=== PATIENT | female | born 1985 | race African-American/Black ===

== ENCOUNTER 2018-04-27 17:02 | Emergency (ER) | payer MEDICAID, MEDICARE ==
[~2018-04-27] VITALS: Ht 172.7 cm; Wt 136.1 kg
[2018-04-27 17:06] VITALS: BP 173/117
== END 2018-04-27 18:49 | disposition left against medical advice (07) ==
LOC: ER 18:37
DX: R10.11 Right upper quadrant pain (principal); Z53.21 Procedure and treatment not carried out due to patient leaving prior to being seen by health care provider
CPT/HCPCS: 99281

== ENCOUNTER 2019-01-08 04:20 | Emergency (ER) | payer MEDICARE, MEDICAID ==
[~2019-01-08] VITALS: Ht 172.7 cm; Wt 140.4 kg
[2019-01-08] MEDS ORDERED: KETOROLAC 30MG/ML VIAL IM ONE (06:30)
[2019-01-08 07:50] VITALS: BP 160/79
== END 2019-01-08 07:55 | disposition home or self-care (01) ==
LOC: ER 04:20
DX: K08.89 Other specified disorders of teeth and supporting structures (principal); F17.200 Nicotine dependence, unspecified, uncomplicated
CPT/HCPCS: 96372; 99283; J1885

== ENCOUNTER 2021-07-12 16:13 | Inpatient (IN) | payer MEDICARE, MEDICAID ==
[~2021-07-12] VITALS: Ht 170.2 cm; Wt 140.2 kg
[~2021-07-12 16:13] MED LIST: DOCU250C14 PO; FERR325T23 PO; LEVO500T2 MT
[2021-07-12] MEDS ORDERED: SODIUM CHLORIDE 0.9% 1,000 ML IV ONE (21:15)
[2021-07-12] MEDS ORDERED: CEPHALEXIN 250MG CAPSULE PO ONE (21:15)
[2021-07-12 21:40] LABS: BG BASE EXCESS 0.4 mmol/L (-2.0-2.0); BG DEOXYHEMOGLOBIN 4.1 % (0.0-5.0); BG FRACTION INSPIRED OXYGEN 21; BG HCO3 ACT 24.3 mmol/L (22.0-26.0); BG METHEMOGLOBIN 0.4 % (0.0-1.5); BG OXYGEN SATURATION 95.8 % (92.0-98.5); BG OXYHEMOGLOBIN 94.5 % (94.0-97.0); BG PCO2 36.2 mmHg (35.0-45.0); BG PH 7.444 (7.350-7.450); BG PO2 79.8 mmHg (75.0-100.0); BG SAMPLE SITE LEFT BRACHIAL; BG VENT MODE ROOM AIR
[2021-07-12] MEDS ORDERED: INSULIN REGULAR (HUMULIN R) 300UNITS/3ML VIAL IV ONE (22:30)
[2021-07-12] MEDS ORDERED: ACETAMINOPHEN 325MG TABLET PO ONE (22:30)
[2021-07-12 23:21] LABS: BASOPHILS % 1.5 % (0.0-2.0); EOSINOPHILS % 2.4 % (0.0-5.0); HEMATOCRIT. 29.3 % (36.0-48.0); HEMOGLOBIN. 8.6 g/dL (12.0-16.0); MEAN CORPUSCULAR VOLUME 61.4 fL (81.0-99.0); MEAN PLATELET VOLUME 8.8 fl (7.4-10.4); NEUTROPHILS % 66.1 % (40.0-76.0); PLATELET 469 x1000/uL (130-400); RED BLOOD CELL COUNT 4.77 mill/uL (4.2-5.4)
[2021-07-12 23:29] LABS: CHLORIDE 100 mEq/L (98-107)
[2021-07-12 23:30] LABS: HCG SCREEN NEGATIVE
[2021-07-12 23:34] LABS: ETHANOL BLOOD < 10 mg/dL
[2021-07-12 23:36] LABS: BETA HYDROXYBUTYRATE 0.2 mMol/L (0.0-0.3)
[2021-07-13 00:08] LABS: PLATELET ESTIMATE NORMAL
[2021-07-13 02:45] VITALS: BP 141/75
[2021-07-13 03:46] VITALS: BP 141/75
[2021-07-13] MEDS ORDERED: DEXTROSE 50% WATER 50ML SYRINGE IV PRN (07:00)
[2021-07-13] MEDS: BLOOD SUGAR DIAGNOSTIC STRIP TEST SCH ×4 (07:20→21:10)
[2021-07-13] MEDS ORDERED: FERR325T23 PO (09:36)
[2021-07-13] MEDS ORDERED: DOCU250C14 PO (09:36)
[2021-07-13] MEDS ORDERED: INSU100I28 SQ (09:37)
[2021-07-13] MEDS ORDERED: INSULIN GLARGINE UD 100 UNITS/ML SYR SUBCUT SCH (10:00)
[2021-07-13 10:33] LABS: BASOPHILS % 1.4 % (0.0-2.0); EOSINOPHILS % 3.5 % (0.0-5.0); HEMATOCRIT. 28.7 % (36.0-48.0); HEMOGLOBIN. 8.8 g/dL (12.0-16.0); LYMPHOCYTES % 15.1 % (20.0-50.0); MEAN CORPUSCULAR HEMOGLOBIN 18.7 pg (28.0-32.0); MEAN CORPUSCULAR VOLUME 61.2 fL (81.0-99.0); MEAN PLATELET VOLUME 8.8 fl (7.4-10.4); MONOCYTES % 7.5 % (2.0-8.0); NEUTROPHILS % 72.5 % (40.0-76.0); PLATELET 481 x1000/uL (130-400); RED BLOOD CELL COUNT 4.69 mill/uL (4.2-5.4); RED CELL DISTRIBUTION WIDTH 21.7 % (11.6-14.6)
[2021-07-13 10:42] LABS: CHLORIDE 104 mEq/L (98-107)
[2021-07-13 10:51] LABS: LDL CHOLESTEROL 105 mg/dL (5-100)
[2021-07-13 10:54] LABS: HDL CHOLESTEROL 32 mg/dL (40-59)
[2021-07-13] MEDS: INSULIN GLARGINE UD 100 UNITS/ML SYR SUBCUT SCH ×2 (11:00→22:00)
[2021-07-13] MEDS: METFORMIN HCL 500MG TABLET PO SCH ×2 (11:48→17:13)
[2021-07-13] MEDS: LISINOPRIL 20MG TABLET PO SCH (11:49)
[2021-07-13] MEDS: INSULIN LISPRO 100 UNITS/ML SUBCUT SCH ×4 (12:19→21:00)
[2021-07-13] MEDS ORDERED: INSULIN LISPRO 100 UNITS/ML SUBCUT SCH (12:20)
[2021-07-13 20:00] VITALS: BP 134/74
[2021-07-13 21:58] VITALS: BP_SYST 142
[2021-07-14] VITALS: BP 102/53
[2021-07-14] MEDS: BLOOD SUGAR DIAGNOSTIC STRIP TEST SCH ×2 (07:04→13:19)
[2021-07-14] MEDS: METFORMIN HCL 500MG TABLET PO SCH (07:50)
[2021-07-14 08:00] VITALS: BP 106/64
[2021-07-14] MEDS: INSULIN LISPRO 100 UNITS/ML SUBCUT SCH ×4 (09:59→12:50)
[2021-07-14] MEDS: INSULIN GLARGINE UD 100 UNITS/ML SYR SUBCUT SCH (10:04)
[2021-07-14] MEDS: LISINOPRIL 20MG TABLET PO SCH (10:07)
[2021-07-14 12:00] VITALS: BP 147/69
[2021-07-14 12:53] VITALS: BP 147/69
== END 2021-07-14 13:30 | disposition home or self-care (01) | DRG 638 ==
LOC: ER 16:13 → 6EST 22:28 → ENRESERV 23:15
PROVIDERS: ADMIT Internal Medicine; ATTEND Internal Medicine
DX: E11.65 Type 2 diabetes mellitus with hyperglycemia (principal); E87.1 Hypo-osmolality and hyponatremia; E44.0 Moderate protein-calorie malnutrition; Z68.41 Body mass index [BMI] 40.0-44.9, adult; I10 Essential (primary) hypertension; D64.9 Anemia, unspecified; F17.210 Nicotine dependence, cigarettes, uncomplicated; E66.9 Obesity, unspecified; Z79.899 Other long term (current) drug therapy; Z71.6 Tobacco abuse counseling; Z71.3 Dietary counseling and surveillance
CPT/HCPCS: 36415; 36600; 80053; 80061; 80320; 82010; 82375; 82805; 82962; 83036; 83605; 84703; 85025; 99285; J1815; J7030; G0480

== ENCOUNTER 2022-04-07 08:02 | Emergency (ER) | payer BC, MEDICAID ==
[~2022-04-07] VITALS: Ht 177.8 cm; Wt 124.0 kg
[~2022-04-07 08:02] MED LIST changes: +INSU100I28 SQ; -LEVO500T2 MT
[2022-04-07] MEDS ORDERED: IBUPROFEN 600MG TABLET PO ONE (08:15)
[2022-04-07] MEDS ORDERED: HYDROCODONE/ACETAMINOPHEN 5/325MG TABLET PO ONE (08:15)
[2022-04-07] MEDS ORDERED: BACITRACIN ZINC OINT UDPKT TOP ONE (08:15)
[2022-04-07] MEDS ORDERED: LIDOCAINE HCL/PF 1% 10 MG/ML 5ML VIAL INFIL ONE (08:15)
[2022-04-07] MEDS ORDERED: IBUPROFEN 600MG TABLET PO NR (11:30)
[2022-04-07] MEDS ORDERED: HYDROCODONE/ACETAMINOPHEN 5/325MG TABLET PO NR (11:30)
[2022-04-07] MEDS ORDERED: LIDOCAINE HCL/PF 1% 10 MG/ML 5ML VIAL INFIL NR (11:30)
[2022-04-07] MEDS ORDERED: BACITRACIN ZINC OINT UDPKT TOP NR (11:30)
[2022-04-07] MEDS ORDERED: SULF1TAB48 MT (12:22)
[2022-04-07] MEDS ORDERED: CEPH500C2 MT (12:22)
[2022-04-07 12:58] VITALS: BP 127/86
== END 2022-04-07 12:59 | disposition home or self-care (01) ==
LOC: ER 08:28
DX: L02.214 Cutaneous abscess of groin (principal)
CPT/HCPCS: 10060; 99283; J3490

== ENCOUNTER 2022-04-27 10:16 | Emergency (ER) | payer BC, MEDICAID ==
[~2022-04-27] VITALS: Ht 172.7 cm; Wt 119.0 kg
[~2022-04-27 10:16] MED LIST changes: +CEPH500C2 MT; +SULF1TAB48 MT
[2022-04-27 10:19] VITALS: BP 131/86
[2022-04-27] MEDS ORDERED: CLOT15CR27 TP (15:55)
[2022-04-27] MEDS ORDERED: FLUC150T46 MT (15:55)
== END 2022-04-27 16:13 | disposition home or self-care (01) ==
LOC: ER 10:16
DX: B35.6 Tinea cruris (principal); E11.9 Type 2 diabetes mellitus without complications
CPT/HCPCS: 81025; 87210; 87491; 87591; 99283

== ENCOUNTER 2023-10-14 11:42 | Emergency (ER) | payer BC ==
[~2023-10-14] VITALS: Ht 167.6 cm; Wt 108.1 kg
[~2023-10-14 11:42] MED LIST changes: +CLOT15CR27 TP; +FLUC150T46 MT
[2023-10-14 11:56] VITALS: BP 121/80; PULSE 119; RESP 20; TEMP 98; O2SAT 100
[2023-10-14] MEDS ORDERED: IBUP-2029 MT (12:01)
[2023-10-14] MEDS ORDERED: CEPH500C2 MT (12:01)
== END 2023-10-14 12:06 | disposition home or self-care (01) ==
LOC: ER 11:42
DX: L02.31 Cutaneous abscess of buttock (principal); E11.9 Type 2 diabetes mellitus without complications; Z98.890 Other specified postprocedural states
CPT/HCPCS: 99283

== ENCOUNTER 2024-01-22 23:17 | Emergency (ER) | payer BC, MEDICAID ==
[~2024-01-22] VITALS: Ht 172.7 cm; Wt 101.3 kg
[~2024-01-22 23:17] MED LIST changes: +IBUP-2029 MT
[2024-01-22 23:34] VITALS: O2SAT 100
[2024-01-23 01:16] LABS: BASOPHILS % 1.3 % (0.0-2.0); EOSINOPHILS % 1.1 % (0.0-5.0); HEMATOCRIT. 32.1 % (36.0-48.0); LYMPHOCYTES % 16.8 % (20.0-50.0); MEAN CORPUSCULAR HEMOGLOBIN 21.1 pg (28.0-32.0); MEAN CORPUSCULAR VOLUME 68.1 fL (81.0-99.0); MEAN PLATELET VOLUME 7.9 fl (7.4-10.4); MONOCYTES % 7.3 % (2.0-8.0); NEUTROPHILS % 73.5 % (40.0-76.0); PLATELET 582 x1000/uL (130-400); RED BLOOD CELL COUNT 4.71 mill/uL (4.2-5.4); RED CELL DISTRIBUTION WIDTH 18.5 % (11.6-14.6); WHITE BLOOD COUNT 13.8 x1000/uL (4.5-11.0)
[2024-01-23 01:23] LABS: ADD RBC MORPHOLOGY YES; DIFFERENTIAL COMMENT 1
[2024-01-23 01:34] LABS: ALANINE AMINOTRANSFERASE < 7 IU/L (10-49); ALBUMIN 4.4 g/dL (3.2-4.8); ASPARTATE AMINOTRANSFERASE 13 IU/L (<34); BILIRUBIN TOTAL 0.6 mg/dL (0.1-1.0); CARBON DIOXIDE 22 mEq/L (21-32); CHLORIDE 106 mEq/L (98-107); CREATININE 0.9 mg/dL (0.6-1.0); GLUCOSE 288 mg/dL (70-105); POTASSIUM 3.2 mEq/L (3.5-5.1); PROTEIN TOTAL 8.3 g/dL (6.0-8.3); SODIUM 136 mEq/L (136-145); UREA NITROGEN BLOOD 5 mg/dL (9-23)
[2024-01-23 01:36] LABS: HYPOCHROMASIA 1+; MICROCYTOSIS 1+; PLATELET ESTIMATE INCREASED
[2024-01-23] MEDS: ONDANSETRON HCL 4MG/2ML INJ IV ONE (01:41)
[2024-01-23] MEDS: MORPHINE SULFATE 4 MG/ML INJ (FOR IV/IM USE) IV ONE (01:41)
[2024-01-23] MEDS: SODIUM CHLORIDE 0.9% 1,000 ML IV ONE (01:45)
[2024-01-23 02:42] LABS: CLARITY URINE CLOUDY (CLEAR); COLOR URINE YELLOW (YELLOW); GLUCOSE URINE NEGATIVE (NEGATIVE); KETONES URINE 1+ (NEGATIVE); LEUKOCYTE ESTERASE URINE 3+ (NEGATIVE); NITRITE URINE NEGATIVE (NEGATIVE); OCCULT BLOOD URINE TRACE (NEGATIVE); PROTEIN URINE NEGATIVE (NEGATIVE); SPECIFIC GRAVITY URINE 1.005 (1.005-1.030)
[2024-01-23 02:46] LABS: PROTHROMBIN TIME 11.4 sec (9.6-11.0)
[2024-01-23] MEDS ORDERED: ONDA4TAB50 MT (03:54)
[2024-01-23] MEDS ORDERED: IBUP-1525 MT (03:54)
[2024-01-23] MEDS ORDERED: NITR-87 MT (03:54)
[2024-01-23] MEDS ORDERED: TOPUD MT (03:54)
[2024-01-23 03:57] LABS: WBC URINE TNTC /hpf (0-2)
[2024-01-23 03:58] LABS: BACTERIA URINE 3+; RBC URINE 0-2 /hpf (0-2); SQUAMOUS EPITHELIAL CELL URINE 1+ /lpf (RARE/1+)
[2024-01-23 04:28] VITALS: BP 140/82; PULSE 87; RESP 18; TEMP 98
== END 2024-01-23 04:30 | disposition home or self-care (01) ==
LOC: ER 23:17
DX: K80.50 Calculus of bile duct without cholangitis or cholecystitis without obstruction (principal); E11.9 Type 2 diabetes mellitus without complications; Z98.890 Other specified postprocedural states
CPT/HCPCS: 99284; 81003; 87086; 87186; 87077; 36415; 96374; 96375; 80053; 83690; 85025; 85610; J2405; J2270; J7030

== ENCOUNTER 2024-05-24 20:47 | Emergency (ER) | payer BC, MEDICAID ==
[~2024-05-24] VITALS: Ht 162.6 cm; Wt 77.0 kg
[~2024-05-24 20:47] MED LIST changes: -CEPH500C2 MT; -CLOT15CR27 TP; -FERR325T23 PO; -FLUC150T46 MT; +IBUP-1525 MT; -IBUP-2029 MT; -INSU100I28 SQ; +OMEP40CA20 MT; +SIME80TA16 PO; -SULF1TAB48 MT; +TOPUD MT
[2024-05-24 20:49] VITALS: BP 162/96; PULSE 101; RESP 16; TEMP 98.3; O2SAT 96
== END 2024-05-24 22:56 | disposition left against medical advice (07) ==
LOC: ER 20:47
DX: R10.9 Unspecified abdominal pain (principal); Z53.21 Procedure and treatment not carried out due to patient leaving prior to being seen by health care provider

== ENCOUNTER 2025-08-01 20:16 | Emergency (ER) | payer BC, MEDICAID ==
[~2025-08-01] VITALS: Ht 167.6 cm; Wt 102.0 kg
[2025-08-01 20:18] VITALS: O2SAT 100
[2025-08-01] MEDS: ONDANSETRON HCL 4MG/2ML INJ IV ONE (21:00)
[2025-08-01] MEDS: MORPHINE SULFATE 4 MG/ML INJ (FOR IV/IM USE) IV ONE (21:00)
[2025-08-01] MEDS: SODIUM CHLORIDE 0.9% 1,000 ML IV ONE (21:03)
[2025-08-01 21:10] LABS: BASOPHILS % 1.7 % (0.0-2.0); EOSINOPHILS % 1.0 % (0.0-5.0); HEMATOCRIT. 31.6 % (36.0-48.0); HEMOGLOBIN. 9.5 g/dL (12.0-16.0); LYMPHOCYTES % 23.4 % (20.0-50.0); MEAN PLATELET VOLUME 8.6 fl (7.4-10.4); MONOCYTES % 7.7 % (2.0-8.0); NEUTROPHILS % 66.2 % (40.0-76.0); PLATELET 566 x1000/uL (130-400); RED BLOOD CELL COUNT 4.62 mill/uL (4.2-5.4); RED CELL DISTRIBUTION WIDTH 19.4 % (11.6-14.6)
[2025-08-01 21:11] LABS: ADD RBC MORPHOLOGY YES
[2025-08-01 21:19] LABS: INR 1.1
[2025-08-01 21:27] LABS: CREATININE 1.2 mg/dL (0.6-1.0); UREA NITROGEN BLOOD 8 mg/dL (9-23)
[2025-08-01 21:29] LABS: ASPARTATE AMINOTRANSFERASE 13 IU/L (<34); BILIRUBIN DIRECT 0.2 mg/dL (<=3.0)
[2025-08-01 21:30] LABS: BILIRUBIN TOTAL 0.6 mg/dL (0.1-1.0); PROTEIN TOTAL 8.1 g/dL (6.0-8.3)
[2025-08-01 21:31] LABS: HCG SCREEN NEGATIVE
[2025-08-01 21:33] LABS: PLATELET ESTIMATE INCREASED
[2025-08-01 21:48] VITALS: BP 145/82; PULSE 90; RESP 16; TEMP 37.1; O2SAT 100
[2025-08-01] MEDS: INSULIN REGULAR (HUMULIN R) 1000UNITS/10ML VIAL IV ONE (22:33)
[2025-08-02] MEDS ORDERED: METF-416 MT (00:29)
[2025-08-02] MEDS ORDERED: EMPA10TA MT (00:30)
== END 2025-08-02 01:24 | disposition home or self-care (01) ==
LOC: ER 20:16 → CMPBEDREQ 08-03 07:59
DX: E11.65 Type 2 diabetes mellitus with hyperglycemia (principal); F17.200 Nicotine dependence, unspecified, uncomplicated; I10 Essential (primary) hypertension; Z79.899 Other long term (current) drug therapy; Z90.49 Acquired absence of other specified parts of digestive tract; Z98.890 Other specified postprocedural states
CPT/HCPCS: 80076; 80048; 82010; 80320; 82962 ×2; 84703; 83690; 85025; 85610; 36415; 71045; 74176; 96361; 96374; 96375; 99285; J1815; J2405; J2270; J7030; G0480